=== PATIENT | male | born 1970 | race Two or more races ===

== ENCOUNTER 2024-02-21 14:54 | Emergency (ER) | payer OTHER ==
[~2024-02-21] VITALS: Ht 170.2 cm; Wt 97.5 kg
[2024-02-21] MEDS ORDERED: COZAAR25 MG PO (15:21)
[2024-02-21] MEDS ORDERED: METRONIDAZOLE/SODIUM CHLORIDE 500 MG/100 ML PIGGYBACK IV ONE (17:00)
[2024-02-21] MEDS ORDERED: MEPERIDINE HCL 25 MG/ML AMPUL IM ONE (17:00)
[2024-02-21 17:24] LABS: HEMATOCRIT 42.9 % (39.0-48.0); HEMOGLOBIN 14.5 g/dL (13-16.00); MEAN CELL VOLUME 90.5 fL (80.0-100.00); MEAN CORPUSCULAR HEMOGLOBIN 30.7 pg (27.00-32.0); MEAN CORPUSCULAR HGB CONC 33.9 g/dl (32.0-36.0); PLATELET COUNT 159 K/uL (150-450); RED BLOOD COUNT 4.74 M/uL (4.00-6.00); RED CELL DISTRIBUTION WIDTH 13.5 % (11.5-14.5)
[2024-02-21 17:59] LABS: URINE APPEARANCE Clear; URINE BILIRRUBIN Negative (NEGATIVE); URINE BLOOD Negative; URINE COLOR Yellow; URINE GLUCOSE Negative (NEGATIVE); URINE LEUKOCYTE Negative; URINE NITRATE Negative; URINE PROTEIN Negative (NEGATIVE); URINE UROBILINOGEN 0.2 E.U./dl
[2024-02-21 18:00] LABS: ALBUMIN 3.4 gm/dL (3.4-5.0); BILIRUBIN TOTAL 1.21 mg/dL (0.3-1.2); CALCIUM 8.7 mg/dL (8.5-10.1); CREATININE SERUM 1.19 mg/dL (0.70-1.30); GFR 63.24; GLOBULINA 4.2 G/DL (2.4-3.5); POTASSIUM 3.8 mEq/L (3.5-5.1); TOTAL PROTEIN 7.6 gm/dL (6.4-8.2)
[2024-02-21 18:01] LABS: URINE EPITHELIAL CELLS 2.6 uL (0.0-38.8); URINE WBC 2.1 uL (0.0-23.2)
[2024-02-21 18:04] LABS: URINE BACTERIA 3.7 uL (0.0-1933); URINE RBC 1.5 uL (0.0-20.8)
[2024-02-21] MEDS ORDERED: METHYLPREDNISOLONE SOD SUCC 125 MG VIAL IV STA (20:06)
[2024-02-21] MEDS ORDERED: DIPHENHYDRAMINE HCL 50 MG/ML VIAL 1ML IV STA (20:07)
== END 2024-02-22 01:26 | disposition home or self-care (01) ==
LOC: ER 14:54
PROVIDERS: Emergency Medicine
DX: K57.32 Diverticulitis of large intestine without perforation or abscess without bleeding (principal); I10 Essential (primary) hypertension; Z87.09 Personal history of other diseases of the respiratory system; Z91.013 Allergy to seafood; Z20.822 Contact with and (suspected) exposure to COVID-19